=== PATIENT | female | born 1995 | race Caucasian/White ===

== ENCOUNTER 2019-08-21 16:24 | Emergency (ER) | payer BC ==
[~2019-08-21] VITALS: Ht 162.6 cm; Wt 61.2 kg
[2019-08-21] MEDS ORDERED: LEVETIRACETAM (250 MG) 250 MG TABLET PO ONE (16:32)
[2019-08-21] MEDS: LEVETIRACETAM (250 MG) 250 MG TABLET PO ONE (16:38)
[2019-08-21 17:40] VITALS: BP 112/65
== END 2019-08-21 17:43 | disposition home or self-care (01) ==
LOC: ER 16:26
DX: G40.909 Epilepsy, unspecified, not intractable, without status epilepticus (principal); Z88.0 Allergy status to penicillin